=== PATIENT | male | born 1995 | race Caucasian/White ===

== ENCOUNTER 2018-03-21 22:36 | Emergency (ER) | payer MEDICAID ==
[~2018-03-21] VITALS: Ht 170.2 cm; Wt 163.3 kg
[2018-03-21 23:00] VITALS: BP_SYST 133
[2018-03-21] MEDS ORDERED: GLU500 PO (23:11)
[2018-03-21] MEDS ORDERED: GLIP-214 PO (23:12)
[2018-03-21] MEDS ORDERED: NACL 0.9% 1,000 ML IV ONE (23:15)
[2018-03-22 00:04] LABS: BASOPHILS # (AUTO) 0.1 K/uL (0.0-0.2); BASOPHILS % (AUTO) 1.2 % (0.0-2.0); EOSINOPHILS # (AUTO) 0.4 K/uL (0.0-0.4); EOSINOPHILS % (AUTO) 3.6 % (0.0-4.0); HEMATOCRIT 46.1 % (36-54); HEMOGLOBIN 15.5 g/dL (14.0-18.0); LYMPHOCYTES # (AUTO) 3.1 K/uL (1.0-5.5); LYMPHOCYTES % (AUTO) 28.4 % (20.5-51.5); MEAN CORPUSCULAR HEMOGLOBIN 28 pg (27-31); MEAN CORPUSCULAR HGB CONC 34 % (32-36); MEAN CORPUSCULAR VOLUME 84 fL (79.0-98.0); MONOCYTES # (AUTO) 0.6 K/uL (0.0-1.0); NEUTROPHILS # (AUTO) 6.6 K/uL (1.8-7.7); NEUTROPHILS % (AUTO) 60.8 % (40.0-70.0); PLATELET COUNT (AUTO) 202 K/uL (130-430); RED BLOOD CELL COUNT(AUTO) 5.49 MIL/uL (4.2-6.2); RED CELL DISTRIBUTION WIDTH 13.3 % (9.0-15.0); WHITE BLOOD COUNT (AUTO) 10.8 K/uL (4.8-10.8)
[2018-03-22 00:08] LABS: CALCIUM 9.1 mg/dL (8.4-11.0); CREATININE 0.94 mg/dL (0.55-1.30); POTASSIUM 4.1 mmol/L (3.5-5.1)
[2018-03-22 01:30] VITALS: BP_SYST 133
== END 2018-03-22 01:30 | disposition home or self-care (01) ==
LOC: SED 22:36
DX: E11.65 Type 2 diabetes mellitus with hyperglycemia (principal)
CPT/HCPCS: 36415; 80048; 85025; 96360; 99284; J7030

== ENCOUNTER 2018-05-31 20:06 | Emergency (ER) | payer MEDICAID ==
[~2018-05-31] VITALS: Ht 172.7 cm; Wt 167.8 kg
[~2018-05-31 20:06] MED LIST: GLIP-214 PO; GLU500 PO
[2018-05-31 20:27] VITALS: BP_SYST 161
[2018-05-31] MEDS ORDERED: LIDOCAINE 1% 10 MG/ML, 20 ML MDV INJ ONE (22:45)
[2018-05-31 23:17] VITALS: BP_SYST 152
[2018-05-31] MEDS ORDERED: BACITRACIN 1 GM OINT TP ONE (23:17)
== END 2018-05-31 23:17 | disposition home or self-care (01) ==
LOC: SED 20:06
DX: L02.412 Cutaneous abscess of left axilla (principal); E11.9 Type 2 diabetes mellitus without complications; R03.0 Elevated blood-pressure reading, without diagnosis of hypertension
CPT/HCPCS: 10060; 99283; J2001